=== PATIENT | female | born 1995 | race Caucasian/White ===

== ENCOUNTER 2016-03-23 10:37 | Emergency (ER) | payer SELFPAY ==
[~2016-03-23] VITALS: Ht 170.2 cm; Wt 117.9 kg
[~2016-03-23 10:37] MED LIST: AZIT1PAC8 PO; AZIT500T PO; AZTH250C PO; BENTYL; DICY10CA59 PO; DICY20TA57 PO; DIPH50CA33 PO; DOXY100C2 PO; Depo Provera; FAMO20TA5 PO; FLUO20CA25 PO; LORA10TA76 PO; NITR-65 PO; PHEN200T27 PO; PRED20TA PO; SULF-222 PO; TRAM50TA2 PO; TRAZ-144 PO
--- OUTSIDE RECORDS SUMMARY | 2016-03-23 10:40 | XMS REPORT ---
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 Name Role Phone JENIFER VERA CP Unavailable Allergies, Adverse Reactions, Alerts Substance Reaction Event Type Levaquin itching Drug Allergy Problems Problem Type Condition Code Onset Dates Condition Status Problem Irritable bowel syndrome 564.1 Active Problem Migraine, unspecified without mention of intractable migraine without mention of status migrainosus 346.90 Active Problem Unspecified contraceptive surveillance V25.40 Active Problem Knee strain, right, initial encounter S86.911A Active Assessment Sore throat J02.9 Active Problem Urinary tract infection, site not specified 599.0 Active Assessment Acute recurrent tonsillitis J03.91 Active Problem Urticaria L50.9 Active Problem Pneumonia, organism unspecified 486 Active Problem Screening examination for venereal disease V74.5 Active Problem Urinary frequency 788.41 Active Problem Dysuria 788.1 Active Problem Diarrhea 787.91 Active Problem Problems related to high-risk sexual behavior V69.2 Active Problem Depressive disorder, not elsewhere classified 311 Active Problem Other and unspecified noninfectious gastroenteritis and colitis 558.9 Active Problem Unspecified constipation 564.00 Active Problem General counseling for initiation of other contraceptive measures V25.02 Active Problem Unspecified otitis media 382.9 Active Problem Abdominal pain, unspecified site 789.00 Active Problem Localized superficial swelling, mass, or lump 782.2 Active Problem Acute bronchitis 466.0 Active Medications Medication Code System Code Instructions Start Date End Date Status Dosage Ibuprofen [facility] [address]-65 800 MG Orally Three times a day Dec 19, 2014 1 tablet Benadryl [facility] [address]-75 25 MG Orally Once a day Dec 21, 2014 1 capsule as needed Keflex [facility] [address]-29 500 MG Orally Twice a day Jan 09, 2015 Jan 19, 2015 2 capsule ZyrTEC [facility] [address]-20 10 MG Orally Once a day Dec 21, 2014 1 tablet as needed Procedures Procedure Coding System Code Date Office Visit, Est Pt., Level 3 CPT-4 19257 Jan 09, 2015 Vital Signs Date/Time: Jan 09, 2015 Temperature 99.0 F Weight 264 lbs Height 68 in BMI 40.14 Index Blood Pressure Diastolic 76 mmHg Blood Pressure Systolic 130 mmHg Cardiac Monitoring Heart Rate 105 bpm Results No Known Results Summary Purpose eClinicalWorks Submission
[2016-03-23] MEDS ORDERED: FAMOTIDINE 20MG/2ML IV (PEPCID) IVP ONE (11:00)
[2016-03-23] MEDS ORDERED: diphenhydrAMINE 50 MG/ML INJ (BENADRYL) IVP ONE (11:00)
[2016-03-23] MEDS ORDERED: methylPREDNISolone 125 MG (Solu-MEDROL) VIAL IVP ONE (11:00)
[2016-03-23] MEDS ORDERED: PRD20T PO (11:03)
--- NOTE | 2016-03-23 11:03 | ED Integumentary General ---
General Chief Complaint: Allergic Reaction Stated Complaint: ALLERGIC REACTION Nursing Triage Note: PT REPORTS GENERALIZED HIVES AND ERYTHEMA WITH BILAT FEET EDEMA X 2 DAYS. SHE REPORTS SYMPTOMS STARTED WHEN SHE COMPLETED 10 DAYS COURSE OF MACROBID. SHE STATES SHE HAS BEEN TAKING 50 MG BENADRYL [id number] WITH NO RELIEF. Source: patient Exam Limitations: no limitations History of Present Illness Time seen by provider: 11:00 Initial Comments To ER with reports of diffuse hives and erythema seem to be most focused on soles of her feet bilaterally 2 days. 2 days ago she finished a ten-day course of Macrobid. She reports tongue and throat itching but no sensation of swelling. Reports that she is intensely itchy right now. Also believes she may still have a bladder infection as she still has some dysuria. Timing/Duration: getting worse Severity: moderate Location: extremities Possible Cause: no cause identified Associated Symptoms: edema (bilateral lower extremities) Allergies and Home Medications Allergies Coded Allergies: Penicillins (Verified Adverse Reaction, Mild, 07/27/11) cefaclor (Verified Adverse Reaction, Mild, 07/27/11) Home Medications Azithromycin 500 Mg Tablet 500 MG PO DAILY (Reported) Diphenhydramine Hcl 50 Mg Tablet 1 EACH PO QID PRN PRN PRN ITCHING (Reported) Famotidine 20 Mg Tablet #30 1 EACH PO BID Prescribed by: CYRUS MENDOZA on 10/04/14 1322 Loratadine 10 Mg Tablet 10 MG PO DAILY (Reported) Prednisone 20 Mg Tablet #10 40 MG PO DAILY Prescribed by: CYRUS MENDOZA on 10/04/14 1322 Prednisone 20 Mg Tab #6 40 MG PO DAILY Prescribed by: BRIDGER CHENG on 03/23/16 1103 Constitutional: see HPI EENTM: see HPI Respiratory: no symptoms reported Cardiovascular: no symptoms reported Genitourinary: no symptoms reported Musculoskeletal: no symptoms reported Skin: see HPI Psychiatric/Neurological: No Symptoms Reported Endocrine: No Symptoms Reported Past Vwfocnp-Fhsyfj-Ughngg Hx Patient Social History Alcohol Use: Denies Use Recreational Drug Use: No Smoking Status: Never a Smoker Recent Foreign Travel: No Contact w/Someone Who Travel: No Recent Infectious Disease Expo: No Recent Hopitalizations: No Physical Abuse Screen: No Sexual Abuse: No Seasonal Allergies Seasonal Allergies: No Surgeries HX Surgeries: No Respiratory Hx Respiratory Disorders: No Cardiovascular Hx Cardiac Disorders: No Neurological Hx Neurological Disorders: No Genitourinary Hx Genitourinary Disorders: Yes (HX OF UTI'S) Gastrointestinal Hx Gastrointestinal Disorders: Yes Gastrointestinal Disorders: Irritable Bowel Musculoskeletal Hx Musculoskeletal Disorders: No Endocrine Hx Endocrine Disorders: No HEENT HX ENT Disorders: No Cancer Hx Cancer: No Psychosocial Hx Psychiatric Problems: Yes Behavioral Health Disorders: Depression Integumentary HX Skin/Integumentary Disorder: No Blood Transfusions Hx Blood Disorders: No Family Medical History Significant Family History: No Pertinent Family Hx Physical Exam Vital Signs Vital Sign - Last 12Hours 03/23/16 10:50 Temp 99.0 Pulse 87 Resp 18 B/P 125/91 Pulse Ox 98 O2 Delivery Room Air Capillary Refill : Less Than 3 Seconds General Appearance: WD/WN no apparent distress HEENT: PERRL/EOMI normal ENT inspection TMs normal Neck: non-tender full range of motion Respiratory: normal breath sounds no respiratory distress no accessory muscle use Gastrointestinal: normal bowel sounds non tender soft Neurologic/Psychiatric: alert normal mood/affect oriented x 3 Skin: normal color warm/dry other (small hives scattered. Mostly on the chest , around her neck and the soles of her feet are erythematous) Skin Problem Character: urticarial Progress/Results/Core Measures Results/Orders Lab Results Laboratory Tests Test 03/23/16 11:32 Range/Units Urine Bacteria LARGE H /HPF Urine Bilirubin NEGATIVE NEGATIVE Urine Casts NONE /LPF Urine Clarity VERY CLOUDY H Urine Color YELLOW Urine Crystals NONE /LPF Urine Culture Indicated YES Urine Glucose (UA) NEGATIVE NEGATIVE Urine Ketones NEGATIVE NEGATIVE Urine Leukocyte Esterase 2+ H NEGATIVE Urine Mucus NEGATIVE /LPF Urine Nitrite NEGATIVE NEGATIVE Urine Test NEGATIVE NEGATIVE Urine Protein NEGATIVE NEGATIVE Urine RBC NONE /HPF Urine RBC (Auto) NEGATIVE NEGATIVE Urine Specific [place] 1.020 1.016-1.022 Urine Urobilinogen NORMAL NORMAL MG/DL Urine WBC 5-10 H /HPF Urine pH 5 5-9 My Orders Orders-BRIDGER CHENG APRN Famotidine Injection (Pepcid Injection) (03/23/16 11:00) Diphenhydramine Injection (Benadryl Inje (03/23/16 11:00) Methylprednisolone Sod Succ (Solu-Medrol (03/23/16 11:00) Ua Culture If Indicated (03/23/16 11:33) Urine Bedside (03/23/16 11:33) Hcg,Qualitative Urine (03/23/16 11:34) Urine Culture (03/23/16 11:32) Medications Given in ED Current Medications Medications Dose Ordered Sig/Sung Route Start Time Stop Time Status Last Admin Dose Admin Diphenhydramine HCl 50 mg ONCE ONCE IVP 03/23/16 11:00 03/23/16 11:01 DC 03/23/16 11:31 50 MG Famotidine 20 mg ONCE ONCE IVP 03/23/16 11:00 03/23/16 11:01 DC 03/23/16 11:31 20 MG Methylprednisolone Sodium Succinate 125 mg ONCE ONCE IVP 03/23/16 11:00 03/23/16 11:01 DC 03/23/16 11:32 125 MG Vital Signs/I&O Vital Sign - Last 12Hours 03/23/16 10:50 Temp 99.0 Pulse 87 Resp 18 B/P 125/91 Pulse Ox 98 O2 Delivery Room Air Blood Pressure Mean: 102 Departure Impression Impression: Primary Impression: Urticaria Additional Impression: Urinary tract infection Qualified Code: N30.00 - Acute cystitis without hematuria Disposition: HOME, SELF-CARE Condition: Stable Departure-Patient Inst. Decision time for Depature: 11:02 Referrals: [facility] (PCP/Family) Primary Care Physician Patient Instructions: Hives Add. Discharge Instructions: 1. Return to ER for any concerns 2. Steroids as directed 3. Take one Benadryl every 4 hours for the next 24 hours 4. Follow-up with your doctor next week for recheck All discharge instructions reviewed with patient and/or family. Voiced understanding. Scripts Sulfamethoxazole/Trimethoprim (Bactrim Ds Tablet)1 Each Tablet1 Each PO BID #14 TAB Prov:BRIDGER CHENG ETHICS MANAGER 03/23/16 Prednisone 20 Mg Tab40 Mg PO DAILY #6 TAB Prov:BRIDGER CHENG ETHICS MANAGER 03/23/16 BRIDGER CHENG ETHICS MANAGER Mar 23, 2016 11:03
[2016-03-23 11:39] LABS: BILIRUBIN,URINE NEGATIVE (NEGATIVE); KETONES,URINE NEGATIVE (NEGATIVE); LEUKOCYTE ESTERASE ,URINE 2+ (NEGATIVE); NITRITE,URINE NEGATIVE (NEGATIVE); PH,URINE 5 (5-9); PROTEIN,URINE NEGATIVE (NEGATIVE); UROBILINOGEN,URINE NORMAL (NORMAL)
[2016-03-23] MEDS ORDERED: SULF1TAB35 PO (11:52)
[2016-03-23 12:00] VITALS: BP 125/91
== END 2016-03-23 12:00 | disposition home or self-care (01) ==
LOC: EDUNIT# 10:37 → ER 10:38
DX: L50.9 Urticaria, unspecified (principal); N39.0 Urinary tract infection, site not specified
CPT/HCPCS: 81000; 84703; 87088; 96374; 96375

== ENCOUNTER 2018-10-22 22:06 | Emergency (ER) | payer BC ==
[~2018-10-22] VITALS: Ht 170.2 cm; Wt 117.9 kg
[~2018-10-22 22:06] MED LIST changes: +PRD20T PO; +SULF1TAB35 PO
[2018-10-22 22:20] LABS: BILIRUBIN,URINE NEGATIVE (NEGATIVE); CLARITY,URINE SLIGHTLY CLOUDY; COLOR,URINE YELLOW; GLUCOSE, URINE (UA) NEGATIVE (NEGATIVE); KETONES,URINE NEGATIVE (NEGATIVE); LEUKOCYTE ESTERASE ,URINE 3+ (NEGATIVE); NITRITE,URINE NEGATIVE (NEGATIVE); PH,URINE 6.5 (5-9); PROTEIN,URINE 2+ (NEGATIVE); UROBILINOGEN,URINE NORMAL (NORMAL)
--- NOTE | 2018-10-22 22:21 | ED GU-Female ---
General Stated Complaint: UTI Source: patient History of Present Illness Date Seen by Provider: Oct 22, 2018 Time Seen by Provider: 22:12 Initial Comments PT ARRIVES VIA POV --PT IS HERE VISITING PARENTS PT STATES SHE HAS "CHRONIC UTI'S" AND BEGAN HAVING SYMPTOMS 3-4 DAYS AGO C/O BURNING ON URINATION C/O LOW BACK PAIN C/O FEELING LIGHTHEADED C/O CHILLS, BUT NO FEVER C/O NAUSEA, NO VOMITING NO ABDOMINAL PAIN LMP 10/16/18. NORMAL . ON OCP'S LAST UTI WAS 4-5 MONTHS AGO PCP: IN [place], [place]--USED TO LIVE HERE WITH PARENTS. Allergies and Home Medications Allergies Coded Allergies: Penicillins (Verified Adverse Reaction, Mild, 07/27/11) cefaclor (Verified Adverse Reaction, Mild, 07/27/11) Home Medications Azithromycin 500 Mg Tablet, 500 MG PO DAILY, (Reported) Diphenhydramine Hcl 50 Mg Tablet, 1 EACH PO QID PRN PRN for ITCHING, (Reported) Famotidine 20 Mg Tablet, 1 EACH PO BID Prescribed by: CYRUS MENDOZA on 10/04/14 1322 Loratadine 10 Mg Tablet, 10 MG PO DAILY, (Reported) Prednisone 20 Mg Tablet, 40 MG PO DAILY Prescribed by: CYRUS MENDOZA on 10/04/14 1322 Prednisone 20 Mg Tab, 40 MG PO DAILY Prescribed by: BRIDGER CHENG on 03/23/16 1103 Sulfamethoxazole/Trimethoprim 1 Each Tablet, 1 EACH PO BID Prescribed by: BRIDGER CHENG on 03/23/16 1152 Patient Home Medication List Home Medication List Reviewed: Yes Review of Systems Review of Systems Constitutional: see HPI, chills, dizziness; No fever EENTM: no symptoms reported Respiratory: no symptoms reported Cardiovascular: no symptoms reported Gastrointestinal: see HPI; No abdominal pain; nausea; No vomiting Genitourinary: see HPI, burning, dysuria, flank pain, pain : No LMP: Oct 16, 2018 Musculoskeletal: see HPI, back pain Skin: no symptoms reported Psychiatric/Neurological: No Symptoms Reported Endocrine: No Symptoms Reported Hematologic/Lymphatic: No Symptoms Reported Past Kgracqq-Qsyydw-Kkjvnp Hx Patient Social History Alcohol Use: Denies Use Recreational Drug Use: No Smoking Status: Never a Smoker Recent Foreign Travel: No Contact w/Someone Who Travel: No Recent Hopitalizations: No Seasonal Allergies Seasonal Allergies: No Past Medical History Surgeries: Yes (COLONOCOPY WITH POLYPECTOMY 2013) Tonsillectomy Respiratory: No Cardiac: No Neurological: No : No Reproductive Disorders: No Genitourinary: Yes Bladder Infection, UTI-Chronic Gastrointestinal: Yes (COLONOSCOPY WITH POLYPECTOMY 2013) Chronic Diarrhea, Polyps, Irritable Bowel Musculoskeletal: No Endocrine: No HEENT: Yes (S/P TONSILLECTOMY) Tonsilitis Cancer: No Psychosocial: Yes Depression Integumentary: No Blood Disorders: No Family Medical History No Pertinent Family Hx Physical Exam Vital Signs Vital Signs - First Documented 10/22/18 22:17 Temp 98.0 Pulse 82 Resp 18 Pulse Ox 97 O2 Delivery Room Air Capillary Refill : Height, Weight, BMI Height: 5'7" Weight: 260lbs. oz. 117.480404ng; 41.96 BMI Method:Stated General Appearance: WD/WN, no apparent distress Cardiovascular: regular rate, rhythm, no murmur Respiratory: normal breath sounds Gastrointestinal: normal bowel sounds, soft, no organomegaly, no pulsatile mass, tenderness (MILD SUPRAPUBIC TENDERNESS) Back: normal inspection, no CVA tenderness, no vertebral tenderness Extremities: normal inspection, no pedal edema Neurologic/Psychiatric: medical registrar II-XII nml as tested, no motor/sensory deficits, alert, normal mood/affect, oriented x 3 Skin: normal color, warm/dry Progress/Results/Core Measures Suspected Sepsis SIRS Temperature: Pulse: Respiratory Rate: Blood Pressure / Mean: Results/Orders Lab Results Laboratory Tests Test 10/22/18 22:11 Range/Units Urine Color YELLOW Urine Clarity SLIGHTLY CLOUDY Urine pH 6.5 5-9 Urine Specific [place] 1.020 1.016-1.022 Urine Protein 2+ H NEGATIVE Urine Glucose (UA) NEGATIVE NEGATIVE Urine Ketones NEGATIVE NEGATIVE Urine Nitrite NEGATIVE NEGATIVE Urine Bilirubin NEGATIVE NEGATIVE Urine Urobilinogen NORMAL NORMAL MG/DL Urine Leukocyte Esterase 3+ H NEGATIVE Urine RBC (Auto) 2+ H NEGATIVE Urine RBC 5-10 H /HPF Urine WBC >100 H /HPF Urine Squamous Epithelial Cells 2-5 /HPF Urine Crystals NONE /LPF Urine Bacteria MODERATE H /HPF Urine Casts NONE /LPF Urine Mucus NEGATIVE /LPF Urine Culture Indicated YES My Orders Orders - KODAK GAN DO Urine Bedside (10/22/18 22:12) Ua Culture If Indicated (10/22/18 22:12) Urine Culture (10/22/18 22:11) Vital Signs/I&O 10/22/18 22:17 Temp 98.0 Pulse 82 Resp 18 B/P (MAP) Pulse Ox 97 O2 Delivery Room Air Capillary Refill : Departure Impression Primary Impression: Urinary tract infection Disposition: HOME, SELF-CARE Condition: Stable Departure-Patient Inst. Referrals: NO,LOCAL PHYSICIAN (PCP/Family) Primary Care Physician Patient Instructions: Urinary Tract Infection, Adult (DC) Add. Discharge Instructions: LOTS OF CLEAR LIQUIDS, NO COFFEE, POP OR TEA TYLENOL AND MOTRIN NEEDED FOR PAIN FOLLOW UP WITH YOUR DR IN 3-4 DAYS IF NO BETTER Scripts Phenazopyridine HCl (Pyridium) 200 Mg Tablet 1 TAB PO TID for BLADDER DISCOMFORT, #15 TAB Prov: KODAK GAN DO 10/22/18 Sulfamethoxazole/Trimethoprim (Bactrim Ds Tablet) 1 Each Tablet 1 EACH PO BID, #20 TAB Prov: KODAK GAN DO 10/22/18 KODAK GAN DO Oct 22, 2018 22:21
[2018-10-22 22:30] LABS: BACTERIA,URINE MODERATE /HPF; WBC,URINE >100 /HPF
[2018-10-22] MEDS ORDERED: RX-TRIMETH/SULFA. 160-800 MG (BACTRIM DS) TAB PPK#2 PO STA (22:40)
[2018-10-22] MEDS ORDERED: PHEN-640 PO (22:43)
[2018-10-22] MEDS ORDERED: SULF1TAB35 PO (22:43)
[2018-10-22] MEDS ORDERED: PHENAZOPYRIDINE 100 MG (PYRIDIUM) TABLET PO ONE (22:45)
[2018-10-22 22:53] VITALS: BP 120/76
== END 2018-10-22 22:54 | disposition home or self-care (01) ==
LOC: EDUNIT# 22:06 → ER 22:07
DX: N39.0 Urinary tract infection, site not specified (principal); K58.9 Irritable bowel syndrome, unspecified; F32.9 Major depressive disorder, single episode, unspecified; Z88.0 Allergy status to penicillin; Z88.1 Allergy status to other antibiotic agents; Z79.52 Long term (current) use of systemic steroids; Z90.89 Acquired absence of other organs; Z86.010 Personal history of colon polyps
CPT/HCPCS: 81000; 84703; 87077; 87088; 87186; 99283

== ENCOUNTER 2018-10-30 14:50 | Emergency (ER) | payer BC | END 2018-10-30 16:08 | disposition home or self-care (01) | LOC: ER 14:50 ==